=== PATIENT | female | born 1995 | race Caucasian/White ===

== ENCOUNTER → 2016-10-14 | Outpatient (CLI) | payer OTHER ==
[~2016-10-14] MED LIST: ANUS2.5C2 TOP; COLA100C PO; LEVO100T4 PO; LEVO88TA3 PO; MILKSUS5 PO; MOTR200T44 PO; PRENTAB40 PO; TYLE325T5 PO
[2016-10-14 05:50] LABS: FREE T4 0.97 NG/DL (0.76-1.46)
== END ==
LOC: M LAB 05:02
PROVIDERS: ATTEND Family Medicine
DX: E06.3 Autoimmune thyroiditis (principal)

== ENCOUNTER → 2016-11-03 | Outpatient (CLI) | payer OTHER | LOC: M LAB 20:36 | PROVIDERS: ATTEND Family Medicine | DX: A69.20 Lyme disease, unspecified (principal); E06.3 Autoimmune thyroiditis ==

== ENCOUNTER → 2016-12-09 | Outpatient (REF) | payer OTHER ==
[~2016-12-09] MED LIST changes: -COLA100C PO; +COLA100C3 PO
[2016-12-09 11:20] LABS: MEAN CORPUSCULAR HEMOGLOBIN 30.7 pg (27.0-33.0); MEAN CORPUSCULAR HGB CONC 33.1 g/dl (32.0-36.5); RED CELL DISTRIBUTION WIDTH 12.1 % (11.5-14.5); WHITE BLOOD COUNT 8.6 K/mm3 (4.0-10.0)
[2016-12-09 11:22] LABS: ALBUMIN 4.2 GM/DL (3.2-5.2); ALBUMIN/GLOBULIN RATIO 1.24 (1.00-1.93); ALKALINE PHOSPHATASE 109 U/L (45-117); ALT/SGPT 21 U/L (12-78); ANION GAP 7 MEQ/L (8-16); AST/SGOT 8 U/L (15-37); BILIRUBIN,TOTAL 0.3 MG/DL (0.2-1.0); BLOOD UREA NITROGEN 13 MG/DL (7-18); CALCIUM LEVEL 8.6 MG/DL (8.5-10.1); CARBON DIOXIDE LEVEL 30 MEQ/L (21-32); CHLORIDE LEVEL 104 MEQ/L (98-107); CREATININE FOR GFR 0.62 MG/DL (0.55-1.02); GLOMERULAR FILTRATION RATE > 60.0 (>60); GLUCOSE, FASTING 104 MG/DL (70-105); POTASSIUM SERUM 3.5 MEQ/L (3.5-5.1); SODIUM LEVEL 141 MEQ/L (136-145); TOTAL PROTEIN 7.6 GM/DL (6.4-8.2)
[2016-12-12 00:06] LABS: HSV TYPE I IgM AB <1:10 titer (<1:10); HSV TYPE II IgM ABY <1:10 titer (<1:10)
== END ==
LOC: M SFHCPLAZ 09:12
PROVIDERS: ATTEND Internal Medicine Infectious Disease
DX: G89.29 Other chronic pain (principal); Z86.19 Personal history of other infectious and parasitic diseases; L51.9 Erythema multiforme, unspecified

== ENCOUNTER → 2016-12-10 | Outpatient (CLI) | payer OTHER ==
--- NOTE | 2016-12-10 20:48 | REP ---
Clinical: Shortness of breath. Technique: PA and lateral views of the chest. Findings: Diffuse coarsened interstitial markings is compatible with chronic reactive airway disease. No acute focal consolidation, effusion, or pneumothorax. Skeletal structures are intact. Impression: Diffuse coarsened interstitial changes suggest chronic reactive airway disease. No acute consolidation, effusion, or pneumothorax. Signed by Claude Richardson MD 12/10/2016 05:50 P
== END ==
LOC: M RAD 13:44
PROVIDERS: ATTEND Internal Medicine Infectious Disease
DX: R06.02 Shortness of breath (principal)

== ENCOUNTER → 2017-02-03 | Outpatient (CLI) | payer OTHER | LOC: M CARPUL 12:40 | PROVIDERS: ATTEND Family Medicine | DX: R06.02 Shortness of breath (principal) ==

== ENCOUNTER → 2017-03-17 | Outpatient (REF) | payer OTHER ==
[~2017-03-17] MED LIST changes: -COLA100C3 PO; +COLA100C5 PO
== END ==
LOC: M LAB REF 16:56
PROVIDERS: ATTEND Advanced Practice Midwife
DX: Z11.3 Encounter for screening for infections with a predominantly sexual mode of transmission (principal)

== ENCOUNTER → 2017-03-18 | Outpatient (CLI) | payer OTHER ==
--- NOTE | 2017-03-19 08:11 | REP ---
Clinical: Dyspareunia and IUD placement . Technique: Transabdominal pelvic ultrasound with color Doppler evaluation of the ovaries. Findings: Bladder is unremarkable and measures approximately 9.0 x 7.38 x 6.3 cm . Normal anteverted uterus measures 8.6 x 2.5 x 4.9 cm . The endometrial complex is unremarkable and IUD is identified in central, satisfactory location. No discrete uterine or endometrial abnormalities are appreciated. Bilateral ovaries are normal in appearance and vascularity without evidence for torsion. Right ovary measures 3.5 x 3.0 x 1.6 cm ; R I = 0.45 . Left ovary measures 2.7 x 2.5 x 1.8 cm ; R I = 0.52 . No pelvic fluid or adnexal mass lesion. Impression: 1. Normal pelvic ultrasound. IUD in satisfactory position. Signed by Claude Richardson MD 03/19/2017 04:48 A
== END ==
LOC: M RAD 14:09
PROVIDERS: ATTEND Advanced Practice Midwife
DX: N94.12 Deep dyspareunia (principal)

== ENCOUNTER → 2017-03-18 | Outpatient (CLI) | payer OTHER ==
--- NOTE | 2017-03-19 08:11 | REP ---
Clinical: History of Sundeep's disease. Technique: Real time lindsay scale evaluation using linear high frequency transducer. Findings: The thyroid gland is diffusely heterogeneous but normal in size and without focal cystic or nodule/mass. Right lobe measures 4.6 x 1.4 x 0.94 cm. Left lobe measures 4.1 x 1.2 x 1.1 cm. Isthmus measures 4.2 mm in width. Impression: Essentially unremarkable thyroid gland. Signed by Claude Richardson MD 03/19/2017 04:46 A
== END ==
LOC: M RAD 14:12
PROVIDERS: ATTEND Internal Medicine
DX: R53.83 Other fatigue (principal); R06.3 Periodic breathing

== ENCOUNTER → 2017-05-18 | Outpatient (CLI) | payer OTHER ==
--- NOTE | 2017-05-18 20:20 | ECGEPIP ---
Stationary ECG Study [facility] Test Date: 2017-05-18 Pat Name: ARETHA SHEEHAN Department: Room: - Gender: F Chicken Handler: REGGIE : 1995 Requested By: Kylie Vela Order Number: [id number] Reading MD: Oren Nichols Measurements Intervals Rogers Rate: 70 P: 70 WA: 157 QRS: 53 QRSD: 81 T: 53 QT: 359 QTc: 388 Interpretive Statements SINUS RHYTHM NO CHANGE SINCE 11/25/11 Electronically Signed On 05-18-2017 20:20:35 EDT by Oren Nichols
--- NOTE | 2017-05-18 20:26 | ECHO ---
DATE OF PROCEDURE: 05/18/2017 REFERRING PHYSICIAN: Kylie Vela NP INDICATION: Palpitations. HEIGHT: 157 cm WEIGHT: 41 kg DIMENSIONS: IVS: 0.8 LV: 3.9 LVPW: 0.7 LA: 2.9 Aorta: 2.5 FINDINGS: The study is of good technical quality. Left ventricle is of normal size and systolic function with estimated left ventricular ejection fraction (LVEF) 60-65%. All four cardiac valves were well seen and appear normal. Right ventricle is normal size and systolic function. Both atria appear normal. No pericardial effusion is present. Inferior vena cava is normal size and appropriately collapses with respiration. Aortic root, aortic arch and abdominal aorta appear all normal. Doppler interrogation reveals no significant valvular disease, all four cardiac valves are functionally competent. Mitral inflow pattern and tissue Doppler imaging of mitral annulus reveal normal diastolic function (E prime septal and lateral velocities are 10 and 17 cm/s respectively). CONCLUSIONS: 1. Study is of good technical quality. 2. Normal LV size, systolic and diastolic function. 3. No significant valvular disease. 4. Normal central venous pressure. 5. Unable to estimate pulmonary artery pressure. 6. Normal echocardiogram. COMMENT: Subacute bacterial endocarditis (SBE) prophylaxis is not recommended. MTDD
== END ==
LOC: M CARPUL 10:16
PROVIDERS: ATTEND Nurse Practitioner Family
DX: R00.2 Palpitations (principal)

== ENCOUNTER → 2017-09-17 | Outpatient (REF) | payer OTHER ==
[2017-09-17 20:44] LABS: FREE T4 0.99 NG/DL (0.76-1.46); THYROID STIMULATING HORMONE 0.397 uIU/ML (0.358-3.740)
[2017-09-20 09:53] LABS: THYROID PEROXIDASE ANTIBODY 820.1 U/ML (<60.0)
[2017-09-21 10:16] LABS: TSH RECEPTOR ASSAY <0.50 IU/L (0.00-1.75)
== END ==
LOC: M LAB 19:33
DX: Z00.00 Encounter for general adult medical examination without abnormal findings (principal); E03.9 Hypothyroidism, unspecified

== ENCOUNTER → 2018-04-01 | Outpatient (CLI) | payer OTHER, SELFPAY ==
[2018-04-01 21:31] LABS: BASO % 0.3 % (0.0-1.0); EOS # 0.2 10^3/uL (0.0-0.50); EOS % 2.2 % (0.0-3.0); HEMATOCRIT 43.1 % (36.0-47.0); HEMOGLOBIN 14.1 g/dl (12.0-15.5); IMMATURE GRANULOCYTE % 0.5 % (0-3.0); LYMPH # 2.2 10^3/uL (1.5-6.5); LYMPH % 24.6 % (24.0-44.0); MEAN CORPUSCULAR HEMOGLOBIN 30.9 pg (27.0-33.0); MEAN CORPUSCULAR HGB CONC 32.7 g/dl (32.0-36.5); MEAN CORPUSCULAR VOLUME 94.5 fl (80.0-96.0); MONO # 0.3 10^3/uL (0.0-0.8); MONO % 3.4 % (0.0-5.0); NEUTROPHILS # 6.1 10^3/uL (1.8-7.7); PLATELET COUNT, AUTOMATED 221 10^3/uL (150-450); RED BLOOD COUNT 4.56 10^6/uL (4.00-5.40); RED CELL DISTRIBUTION WIDTH 11.8 % (11.5-14.5); WHITE BLOOD COUNT 8.8 10^3/uL (4.0-10.0)
[2018-04-01 21:51] LABS: ERYTHROCYTE SEDIMENTATION RATE 2 mm/hr (0-20)
[2018-04-01 21:56] LABS: ALBUMIN 4.4 GM/DL (3.2-5.2); ALBUMIN/GLOBULIN RATIO 1.13 (1.00-1.93); ALKALINE PHOSPHATASE 94 U/L (45-117); ALT/SGPT 27 U/L (12-78); ANION GAP 7 MEQ/L (8-16); AST/SGOT 9 U/L (7-37); BILIRUBIN,TOTAL 0.4 MG/DL (0.2-1.0); BLOOD UREA NITROGEN 12 MG/DL (7-18); CALCIUM LEVEL 9.2 MG/DL (8.5-10.1); CARBON DIOXIDE LEVEL 30 MEQ/L (21-32); CHLORIDE LEVEL 104 MEQ/L (98-107); CREATININE FOR GFR 0.79 MG/DL (0.55-1.30); GLOMERULAR FILTRATION RATE > 60.0 (>60); GLUCOSE, FASTING 88 MG/DL (70-100); POTASSIUM SERUM 4.4 MEQ/L (3.5-5.1); SODIUM LEVEL 141 MEQ/L (136-145); THYROID STIMULATING HORMONE 0.649 uIU/ML (0.358-3.740); TOTAL 25(OH) VITAMIN D 29.2 NG/ML (30.0-100.0); TOTAL PROTEIN 8.3 GM/DL (6.4-8.2)
== END ==
LOC: M LAB 20:43
DX: E06.3 Autoimmune thyroiditis (principal); R53.83 Other fatigue
CPT/HCPCS: 84443

== ENCOUNTER → 2018-04-06 | Outpatient (REF) | payer OTHER, SELFPAY | LOC: M LAB REF 17:02 | DX: R30.0 Dysuria (principal); Z12.4 Encounter for screening for malignant neoplasm of cervix | CPT/HCPCS: 87086 ==

== ENCOUNTER 2018-06-22 23:57 | Outpatient (CLI) | payer OTHER ==
[2018-06-23 01:43] LABS: BASO % 0.3 % (0.0-1.0); EOS # 0.2 10^3/uL (0.0-0.50); EOS % 1.8 % (0.0-3.0); HEMOGLOBIN 13.6 g/dl (12.0-15.5); IMMATURE GRANULOCYTE % 0.3 % (0-3.0); LYMPH # 2.4 10^3/uL (1.5-6.5); LYMPH % 27.1 % (24.0-44.0); MEAN CORPUSCULAR HEMOGLOBIN 31.1 pg (27.0-33.0); MEAN CORPUSCULAR HGB CONC 32.4 g/dl (32.0-36.5); MEAN CORPUSCULAR VOLUME 95.9 fl (80.0-96.0); MONO # 0.3 10^3/uL (0.0-0.8); MONO % 3.8 % (0.0-5.0); NEUTROPHILS # 5.8 10^3/uL (1.8-7.7); NEUTROPHILS % 66.7 % (36.0-66.0); PLATELET COUNT, AUTOMATED 242 10^3/uL (150-450); RED BLOOD COUNT 4.38 10^6/uL (4.00-5.40); RED CELL DISTRIBUTION WIDTH 12.4 % (11.5-14.5); WHITE BLOOD COUNT 8.8 10^3/uL (4.0-10.0)
[2018-06-23 01:52] LABS: APPEARANCE, URINE CLEAR (CLEAR); BACTERIA, URINE AUTO 1+ (NEGATIVE); BILIRUBIN, URINE AUTO NEGATIVE (NEGATIVE); BLOOD, URINE BLOOD NEGATIVE (NEGATIVE); COLOR, URINE YELLOW (YELLOW); GLUCOSE, URINE (UA) AUTO NEGATIVE (NEGATIVE); KETONE, URINE AUTO NEGATIVE (NEGATIVE); LEUKOCYTE ESTERASE, URINE AUTO NEGATIVE (NEGATIVE); MUCUS, URINE SMALL (NEGATIVE); NITRITE, URINE AUTO NEGATIVE (NEGATIVE); PROTEIN, URINE AUTO NEGATIVE (NEGATIVE); RBC, URINE AUTO 0 /HPF (0-3); SQUAMOUS EPITHELIAL CELL UR AU 3 /HPF (0-6); WBC, URINE AUTO 1 /HPF (0-3)
[2018-06-23 01:55] LABS: ALBUMIN/GLOBULIN RATIO 1.29 (1.00-1.93); ALKALINE PHOSPHATASE 83 U/L (45-117); ALT/SGPT 27 U/L (12-78); ANION GAP 6 MEQ/L (8-16); AST/SGOT 9 U/L (7-37); BILIRUBIN,TOTAL 0.3 MG/DL (0.2-1.0); BLOOD UREA NITROGEN 12 MG/DL (7-18); C REACTIVE PROTEIN QUANTITATIV < 0.30 MG/DL (0.00-0.30); CALCIUM LEVEL 8.6 MG/DL (8.5-10.1); CARBON DIOXIDE LEVEL 29 MEQ/L (21-32); CHLORIDE LEVEL 104 MEQ/L (98-107); CREATININE FOR GFR 0.67 MG/DL (0.55-1.30); GLOMERULAR FILTRATION RATE > 60.0 (>60); GLUCOSE, FASTING 105 MG/DL (70-100); SODIUM LEVEL 139 MEQ/L (136-145); TOTAL PROTEIN 7.1 GM/DL (6.4-8.2); URIC ACID 3.5 MG/DL (2.6-6.0)
[2018-06-23 02:05] LABS: ERYTHROCYTE SEDIMENTATION RATE 2 mm/hr (0-20)
[2018-06-23 02:21] LABS: COMPLEMENT C3 75 MG/DL (90-180)
[2018-06-23 02:25] LABS: MALB URINE SIEMENS 12.7 MG/L
[2018-06-23 03:06] LABS: MAU/CREAT RATIO 9.9 MCG/MG (0.0-30.0)
[2018-06-25 08:06] LABS: ANTI DOUBLE STRAND-DNA AB 1 IU/mL (0-9); BETA-2 GLYCOPROTEIN I ABY IGA <9 (0-25); BETA-2 GLYCOPROTEIN I ABY IGG <9 (0-20); BETA-2 GLYCOPROTEIN I ABY IGM <9 (0-32)
[2018-06-28 09:12] LABS: DRVV SCREEN 34.2 SEC
[2018-06-28 09:16] LABS: PTT LUPUS TYPE ANTICOAG SCREEN 0.8 (0-1.2)
== END 2018-06-23 ==
LOC: M LAB 23:57
DX: M32.11 Endocarditis in systemic lupus erythematosus (principal)
CPT/HCPCS: 84550

== ENCOUNTER → 2018-10-05 | Outpatient (CLI) | payer BC ==
[2018-10-05 19:33] LABS: FREE T4 0.97 NG/DL (0.76-1.46); THYROID STIMULATING HORMONE 0.817 uIU/ML (0.358-3.740)
== END ==
LOC: M SMT 15:10
PROVIDERS: ATTEND Physician Assistant
DX: E06.3 Autoimmune thyroiditis (principal)

== ENCOUNTER → 2018-12-21 | Outpatient (CLI) | payer BC, OTHER ==
[2018-12-21 13:19] LABS: BASO % 0.2 % (0.0-1.0); EOS # 0.1 10^3/uL (0.0-0.50); EOS % 1.3 % (0.0-3.0); HEMOGLOBIN 12.1 g/dl (12.0-15.5); LYMPH # 1.8 10^3/uL (1.5-6.5); LYMPH % 20.9 % (24.0-44.0); MEAN CORPUSCULAR HEMOGLOBIN 31.2 pg (27.0-33.0); MEAN CORPUSCULAR HGB CONC 33.6 g/dl (32.0-36.5); MEAN CORPUSCULAR VOLUME 92.8 fl (80.0-96.0); MONO # 0.4 10^3/uL (0.0-0.8); MONO % 4.6 % (0.0-5.0); NEUTROPHILS # 6.2 10^3/uL (1.8-7.7); NEUTROPHILS % 72.2 % (36.0-66.0); PLATELET COUNT, AUTOMATED 211 10^3/uL (150-450); RED BLOOD COUNT 3.88 10^6/uL (4.00-5.40); WHITE BLOOD COUNT 8.5 10^3/uL (4.0-10.0)
[2018-12-21 13:50] LABS: FREE T4 1.21 NG/DL (0.76-1.46); RUBELLA IgG QUALITATIVE IMMUNE (IMMUNE); THYROID STIMULATING HORMONE 0.466 uIU/ML (0.358-3.740)
[2018-12-21 14:16] LABS: HIV 1&2 SCREEN CENTAUR NEGATIVE (NEGATIVE)
[2018-12-21 15:01] LABS: CHLAMYDIA DNA AMPLIFICATION NEGATIVE (NEGATIVE); GC DNA AMPLIFICATION NEGATIVE (NEGATIVE)
== END ==
LOC: M SMT 10:00
PROVIDERS: ATTEND Specialist
DX: Z34.81 Encounter for supervision of other normal pregnancy, first trimester (principal); Z3A.09 9 weeks gestation of pregnancy

== ENCOUNTER → 2019-01-19 | Outpatient (CLI) | payer BC | LOC: M SMT 15:52 | PROVIDERS: ATTEND Specialist | DX: Z34.82 Encounter for supervision of other normal pregnancy, second trimester (principal) ==

== ENCOUNTER → 2019-02-21 | Outpatient (CLI) | payer BC ==
[2019-02-21 18:54] LABS: FREE T4 1.1 NG/DL (0.76-1.46); THYROID STIMULATING HORMONE 0.699 uIU/ML (0.358-3.740)
== END ==
LOC: M SMT 15:08
PROVIDERS: ATTEND Specialist
DX: E03.9 Hypothyroidism, unspecified (principal)

== ENCOUNTER → 2019-04-27 | Outpatient (CLI) | payer BC ==
[2019-04-27 13:41] LABS: BASO % 0.5 % (0.0-1.0); EOS # 0.1 10^3/uL (0.0-0.5); EOS % 1.3 % (0.0-3.0); HEMATOCRIT 36.2 % (36.0-47.0); HEMOGLOBIN 12.2 g/dl (12.0-15.5); LYMPH # 1.5 10^3/uL (1.5-5.0); LYMPH % 17.1 % (24.0-44.0); MEAN CORPUSCULAR HEMOGLOBIN 32.4 pg (27.0-33.0); MEAN CORPUSCULAR HGB CONC 33.7 g/dl (32.0-36.5); MEAN CORPUSCULAR VOLUME 96.3 fl (80.0-96.0); MONO # 0.3 10^3/uL (0.0-0.8); MONO % 3.8 % (0.0-5.0); NEUTROPHILS # 6.4 10^3/uL (1.5-8.5); NEUTROPHILS % 74.2 % (36.0-66.0); PLATELET COUNT, AUTOMATED 162 10^3/uL (150-450); RED BLOOD COUNT 3.76 10^6/uL (4.00-5.40); WHITE BLOOD COUNT 8.6 10^3/uL (4.0-10.0)
== END ==
LOC: M SMT 09:27
PROVIDERS: ATTEND Specialist
DX: O09.292 Supervision of pregnancy with other poor reproductive or obstetric history, second trimester (principal)

== ENCOUNTER → 2019-05-05 | Outpatient (CLI) | payer BC | LOC: M LAB 07:16 | PROVIDERS: ATTEND Specialist | DX: Z34.82 Encounter for supervision of other normal pregnancy, second trimester (principal) ==

== ENCOUNTER → 2019-06-21 | Outpatient (CLI) | payer BC | LOC: M SMT 14:28 | PROVIDERS: ATTEND Advanced Practice Midwife | DX: Z34.83 Encounter for supervision of other normal pregnancy, third trimester (principal); Z3A.00 Weeks of gestation of pregnancy not specified ==

== ENCOUNTER 2019-07-07 06:35 | Inpatient (IN) | payer BC ==
[~2019-07-07] VITALS: Ht 157.5 cm; Wt 52.8 kg
[2019-07-07] VITALS (19 sets, daily range): BP systolic 109–139; BP diastolic 58–89
[~2019-07-07 06:35] MED LIST changes: +LEVOTHYROXINE 75MCG TABLET (0.075MG) PO SCH
[2019-07-07] MEDS ORDERED: SYNT75TA PO (07:13)
[2019-07-07] MEDS ORDERED: PLAQ200T4 PO (07:13)
[2019-07-07] MEDS ORDERED: miSOPROStol 50 MCG 1/2 TAB (S0191) SL SCH (07:30)
--- NOTE | 2019-07-07 07:51 | HPEPDOC ---
Obstetrical History & Physical General Date of Admission Jul 07, 2019 at 06:35 History of Present Illness Chief Complaint: Induction of labor Information Provided By: Patient Age: 23 : 3 Term: 1 Pre-term: 1 Abortions: 0 Livin Care Care: Good Care Dating Final EDC: Jul 21, 2019 Final EDC by: LMP EGA at Admission: 38 Antepartum Course Height (inches): 62 Pre- weight (lbs.): 89 Admission Weight (lbs.): 117 Past Medical History Past Obstetrical History #1: Past Obstetrical History: Primgravida (2012) Type of Delivery: Spontaneous Vaginal Del. Sex of Infant: Male Complications: Yes (stillborn @ 29 wks, cord entanglement) Past Obstetrical History #2: Past Obstetrical History: Multigravida (2013) Type of Delivery: Spontaneous Vaginal Del. Sex of : Male (7#5) Complications: No (IOL @ 38 wks) [employer] History: No pertinent history Past Medical History Medical History lupus, hashimotos, Surgical History: Other (septoplasty) Family History Significant Family History: No pertinent family hx Social History Marital Status: Family situation: Spouse/partner home Psychosocial History: No pertinent psych hx * Smoker: former Smoker Alcohol: Denies Drugs: denies Imunizations Tdap status: declined Allergies Coded Allergies: DYE'S (COLOR'S NOT IODINATED) (Verified Allergy, Intermediate, PURPLE DYE - HIVES, 10/20/07) codeine (Verified Adverse Reaction, Mild, TACHYCARDIA, 07/07/19) Medications Scheduled Levothyroxine Sodium (Synthroid) 75 Mcg Tablet, 1 TAB PO DAILY Pnv No.95/Ferrous Fum/Folic AC ( Formula Tablet) 1 Tab Tab, 1 TAB PO DAILY Miscellaneous Medications Hydroxychloroquine Sulfate (Plaquenil) 200 Mg Tablet, 200 MG PO Physical Examination Physical Examination GENERAL: Alert and oriented times three. BREAST: . ABDOMEN: Gravid and non-tender to touch. FETUS: Is vertex (VTX) by sterile vaginal examination (SVE), fetus is vertex (VTX) by Billy. HEART RATE: Regular rate and rhythm. LUNGS: Clear to auscultation (CTA). EXTREMITIES: No edema. No clonus. Deep tendon reflexes (DTRs) + 2. Laboratory Data 24H LABS Laboratory Tests 2 07/07/19 06:44: Serology Scanned Report Hepatitis B Testing Pertinent Laboratoy Data Blood Type: O+ RBC Antibody Screen: Negative HIV: Negative Hepatitis B: Negative Hepatitis C: Negative Rapid Plasma Reagin: Nonreactive Rubella: Immune Chlamydia/Gonorrhea: Negative Group B Streptococcus: Negative Glucose Tolerance Test: 134 (unable to tolerate 3hr. Daily fingerstick levels WNL) Diag/Inter Therapy Panorama, low risk male Anatomy Ultrasound Ultrasound Date: Mar 08, 2019 Placenta Location: Anterior Normal Anatomy: Yes Placenta Previa: No Estimated Weight (grams): 448 Other Ultrasounds 12/21/18 dating 10w 06/21/19 vertex Steroid Therapy Steroid Therapy: No Vaginal Examination Dilation: 3 cm Effacement: 70% Station: -2 Cervical Consistency: Soft Cervical Position: Middle Presentation: Cephalic presentation Assessment Heart Rate (FHR): 145 Variability: Moderate Accelerations: Positive Decelerations: None Tocometer Contractions: Yes Frequency: irregular Duration: less than 60 seconds Strength: palpated as mild Assessment/Plan Assessment Meghan is a 23-year-old (G)3 para (P)1-1-0-1 at 38-0 weeks by 10-week ultrasound. Presents to Labor and Delivery (L&D) induction of labor per consult Dr Perez. History is significant for lupus and hashimotos. Obstetric history complicated by 29wk demise due to cord entanglement. . 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 Group B Streptococcus (GBS) negative. Labs and intravenous (IV) per unit protocol. Counseled on misoprostol, Pitocin and induction of labor (IOL). Lactated Ringers (LR): Bolus 500 mL, then saline lock. Plans epidural for labor coping Anticipate normal spontaneous delivery (). C-S as appropriate. Moriah Wolfe CNM Jul 07, 2019 07:51
[2019-07-07 07:52] LABS: HEMATOCRIT 37.6 % (36.0-47.0); HEMOGLOBIN 12.3 g/dl (12.0-15.5); MEAN CORPUSCULAR HEMOGLOBIN 31.7 pg (27.0-33.0); MEAN CORPUSCULAR HGB CONC 32.7 g/dl (32.0-36.5); MEAN CORPUSCULAR VOLUME 96.9 fl (80.0-96.0); PLATELET COUNT, AUTOMATED 138 10^3/uL (150-450); RED BLOOD COUNT 3.88 10^6/uL (4.00-5.40); WHITE BLOOD COUNT 9.9 10^3/uL (4.0-10.0)
[2019-07-07] MEDS ORDERED: OXYTOCIN DRIP 30 UNITS in IV 1 EA IV SCH (12:30)
[2019-07-07] MEDS: LR 1,000 ML IV SCH ×2 (12:56→16:59)
--- NOTE | 2019-07-07 16:22 | IPNPDOC ---
Text Note Date of Service The patient was seen on 07/07/19. NOTE Remains comfortable. Pitocin @ 8mu Cat I tracing UC Q 2-3 minutes x 60 seconds SVE 3+/70/-2 Rec pt obtain her epidural then AROM Pt agrees. VS,Fishbone, I+O VS, Fishbone, I+O Laboratory Tests 07/07/19 07:36 Vital Signs Date Time Temp Pulse Resp B/P (MAP) Pulse Ox O2 Delivery O2 Flow Rate FiO2 07/07/19 15:52 85 18 127/81 (96) 07/07/19 13:00 98.6 Moriah Wolfe CNM Jul 07, 2019 16:22
[2019-07-07] MEDS ORDERED: FENTANYL 2MCG/ML ROPIVACAINE 0.2% IN 0.9% NACL 100ML IVBAG As Ordered ONE (17:05)
--- NOTE | 2019-07-07 17:54 | IPNPDOC ---
Text Note Date of Service The patient was seen on 07/07/19. NOTE Comfortable with epidural Pitocin @ 8 mu Cat I tracing UC 2-3 minutes apart SVE unchanged, AROM large amount clear fluid VS,Fishbone, I+O VS, Fishbone, I+O Laboratory Tests 07/07/19 07:36 Vital Signs Date Time Temp Pulse Resp B/P (MAP) Pulse Ox O2 Delivery O2 Flow Rate FiO2 07/07/19 16:53 75 18 133/82 (99) 07/07/19 13:00 98.6 Moriah Wolfe CNM Jul 07, 2019 17:53
[2019-07-07] MEDS ORDERED: LACTATED RINGER'S 1000 ML IV PRN (18:30)
[2019-07-07] MEDS ORDERED: FENTANYL/ROPIVACAINE/NACL BAG 100 ML EPIDURAL SCH (18:30)
[2019-07-07] MEDS ORDERED: EPIDURAL COMMENT XX SCH (18:30)
[2019-07-07] MEDS ORDERED: EPIDURAL/PCA KEYS XX PRN (18:30)
[2019-07-07] MEDS ORDERED: ONDANSETRON 4MG/2ML VIAL (J2405) IV PRN (18:30)
[2019-07-07] MEDS ORDERED: NALOXONE INJ 0.4 MG/1 ML VIAL (J2310) IV PRN (18:30)
[2019-07-07] MEDS ORDERED: ePHEDrine SULFATE 25 MG/5 ML(5MG/ML) SYRINGE IV PRN (18:30)
[2019-07-07] MEDS ORDERED: diphenhydrAMINE INJ 50MG/ML VIAL (J1200) IV PRN (18:30)
[2019-07-07] MEDS ORDERED: REFRIGERATOR IV KEYS XX PRN (18:30)
[2019-07-07 19:07] LABS: CORD GAS ABE A -6.9; CORD GAS HCO3 A 19.4 MEQ/L; CORD GAS PCO2 A 41.7 mmHg; CORD GAS PH A 7.285 UNITS; CORD GAS SBC A 18.5 MEQ/L; CORD GAS TCO2 A 20.7 MEQ/L
[2019-07-07 19:08] LABS: CORD GAS ABE V -4.7; CORD GAS HCO3 V 20.1 MEQ/L; CORD GAS O2 SAT V 86.6 %; CORD GAS PCO2 V 36.8 mmHg; CORD GAS PH V 7.355 UNITS; CORD GAS PO2 V 42.4 mmHg; CORD GAS SBC V 20.4 MEQ/L; CORD GAS TCO2 V 21.2 MEQ/L
[2019-07-07] MEDS ORDERED: RHOGAM 300 MCG (1500 IU) INJ (J2790) IM SCH (19:15)
[2019-07-07] MEDS ORDERED: IBUPROFEN 600 MG TAB PO PRN (19:15)
[2019-07-07] MEDS ORDERED: ACETAMINOPHEN 500 MG TAB PO PRN (19:15)
[2019-07-07] MEDS ORDERED: DIBUCAINE 1% OINTMENT 30GM TOP PRN (19:15)
[2019-07-07] MEDS ORDERED: ACETAMINOPHEN TAB 650MG DOSE (2X325MG) PO PRN (19:15)
[2019-07-07] MEDS ORDERED: DOCUSATE SODIUM 100 MG CAP PO PRN (19:15)
[2019-07-07] MEDS ORDERED: ANUSOL HC CREAM 30GM TOP PRN (19:15)
[2019-07-07] MEDS ORDERED: MOM 30ML SUSPENSION UDC PO PRN (19:15)
[2019-07-07] MEDS ORDERED: METHYLERGONOVINE MALEATE 0.2 MG TAB PO PRN (19:15)
[2019-07-07] MEDS ORDERED: MEASLES,MUMPS,RUBELLA VACCINE INJ (MMR-II) (90707) SC SCH (19:15)
--- NOTE | 2019-07-07 19:18 | DNPDOC ---
[facility] Delivery Note Delivery Note DATE OF DELIVERY: 07/07/2019 PREDELIVERY DIAGNOSIS: 38-0/7 weeks' gestation and labor. POST DELIVERY DIAGNOSIS: Delivered. PROCEDURE: Spontaneous vaginal delivery. PROVIDER: Moriah Wolfe CNM ANESTHESIA: Epidural. ESTIMATED BLOOD LOSS: 300 mL. FINDINGS: 5 pound 12 ounce, 2600gm male , Score 8/10, tight nuchal cord times 1, compound presentation right posterior arm. DELIVERY SUMMARY: Patient is a 23-year-old 3 now para 2-1-0-2 who was admitted to labor and delivery for induction of labor per consult Dr Perez. She received misoprostol PO x 1 and IV pitocin. She utilized an epidural for labor coping. AROM moderate amount clear fluid 174. Fully dilated 183. Viable male delivered KYAW via somersault maneuver through tight nuchal cord with compound right posterior arm @ 1843. Spontaneous respirations, transitioned on maternal abdomen. Cord gases obtained and are pending. Cord doubly clamped and cut once pulsations ceased. Apgars 8/10. Placenta flannery, intact with 3v cord @ 1859. Fundus firmed with massage and IV pitocin bolus. EBL 300ml. Perineum, cervix and vagina intact. Sponge, sharp and instrument count correct. Moriah Wolfe CNM Jul 07, 2019 19:18
[2019-07-08] MEDS: LEVOTHYROXINE 75MCG TABLET (0.075MG) PO SCH (00:10)
[2019-07-08] MEDS: HYDROXYCHLOROQUINE 200 MG TAB PO SCH (00:11)
[2019-07-08] MEDS: IBUPROFEN 800 MG TAB PO PRN ×3 (00:16→18:11)
[2019-07-08 06:24] VITALS: BP 108/60
--- NOTE | 2019-07-08 07:13 | IPNPDOC ---
Text Note Date of Service The patient was seen on 07/08/19. NOTE PP #1 Feels well. Adequate pain management. Breast and bottle feeding VSS, afebrile, normotensive Breasts soft, nipples intact Fundus firm, NT, down 1FB Perineum intact Lochia rubra light without odor PPD #1 Routine care. Enc putting baby to breast prior to using bottle. Discussed alternated methods vs bottle/nipple feeding Anticipate D/C in am VS,Fishbone, I+O VS, Fishbone, I+O Laboratory Tests 07/07/19 07:36 Vital Signs Date Time Temp Pulse Resp B/P (MAP) Pulse Ox O2 Delivery O2 Flow Rate FiO2 07/08/19 06:24 98.5 86 16 108/60 (76) I&O- Last 24 Hours up to 6 AM 07/08/19 06:00 Intake Total 1030.9 ml Output Total 1600 ml Balance -569.1 ml Moriah Wolfe CNM Jul 08, 2019 07:13
[2019-07-08] MEDS: PRENATAL VITAMINS CHEWABLE TABLET PO SCH (08:43)
[2019-07-08] MEDS ORDERED: PRENATAL VITAMINS CHEWABLE TABLET PO SCH (09:00)
[2019-07-08 18:00] VITALS: BP 130/87
[2019-07-09] MEDS: LEVOTHYROXINE 75MCG TABLET (0.075MG) PO SCH (00:15)
[2019-07-09] MEDS: HYDROXYCHLOROQUINE 200 MG TAB PO SCH (00:15)
[2019-07-09] MEDS: IBUPROFEN 800 MG TAB PO PRN (03:13)
[2019-07-09 06:00] VITALS: BP 108/64
[2019-07-09] MEDS: PRENATAL VITAMINS CHEWABLE TABLET PO SCH (08:21)
[2019-07-09] MEDS ORDERED: IBUP80TA PO (12:57)
== END 2019-07-09 13:25 | disposition home or self-care (01) | DRG 560 ==
LOC: M LDI 06:35 → M OBS 21:47
PROVIDERS: ADMIT Advanced Practice Midwife; ATTEND Advanced Practice Midwife
PROC: 10E0XZZ Delivery of Products of Conception, External Approach (ICD-10-PCS; principal; 2019-07-07)
PROC: 3E0P7GC Introduction of Other Therapeutic Substance into Female Reproductive, Via Natural or Artificial Opening (ICD-10-PCS; 2019-07-07)
PROC: 10907ZC Drainage of Amniotic Fluid, Therapeutic from Products of Conception, Via Natural or Artificial Opening (ICD-10-PCS; 2019-07-07)
DX: O99.284 Endocrine, nutritional and metabolic diseases complicating childbirth (principal); E06.3 Autoimmune thyroiditis; O26.893 Other specified pregnancy related conditions, third trimester; M32.9 Systemic lupus erythematosus, unspecified; Z3A.38 38 weeks gestation of pregnancy; Z37.0 Single live birth; O69.1XX0 Labor and delivery complicated by cord around neck, with compression, not applicable or unspecified; O32.8XX0 Maternal care for other malpresentation of fetus, not applicable or unspecified

== ENCOUNTER → 2019-08-22 | Outpatient (CLI) | payer BC ==
[~2019-08-22] MED LIST changes: +IBUP80TA PO; -LEVOTHYROXINE 75MCG TABLET (0.075MG) PO SCH; +PLAQ200T4 PO; +SYNT75TA PO
[2019-08-22 13:50] LABS: FREE T4 1.03 NG/DL (0.76-1.46); THYROID STIMULATING HORMONE 1.02 uIU/ML (0.358-3.740)
== END ==
LOC: M LAB 12:04
PROVIDERS: ATTEND Family Medicine
DX: E06.3 Autoimmune thyroiditis (principal)

== ENCOUNTER → 2020-03-01 | Outpatient (CLI) | payer BC ==
[2020-03-01 22:15] LABS: FREE T4 0.94 NG/DL (0.76-1.46)
== END ==
LOC: M LAB 21:32
PROVIDERS: ATTEND Physician Assistant
DX: E06.3 Autoimmune thyroiditis (principal)

== ENCOUNTER → 2020-04-25 | Outpatient (CLI) | payer BC ==
[2020-04-25 14:40] LABS: FREE T4 1.13 NG/DL (0.76-1.46); THYROID STIMULATING HORMONE 1.9 uIU/ML (0.358-3.740)
== END ==
LOC: M LAB 11:17
PROVIDERS: ATTEND Physician Assistant
DX: E06.3 Autoimmune thyroiditis (principal)

== ENCOUNTER → 2020-07-05 | Outpatient (CLI) | payer BC ==
[2020-07-05 21:24] LABS: APPEARANCE, URINE CLEAR (CLEAR); BACTERIA, URINE AUTO 1+ (NEGATIVE); BILIRUBIN, URINE AUTO NEGATIVE (NEGATIVE); BLOOD, URINE BLOOD NEGATIVE (NEGATIVE); COLOR, URINE STRAW (YELLOW); GLUCOSE, URINE (UA) AUTO NEGATIVE (NEGATIVE); KETONE, URINE AUTO NEGATIVE (NEGATIVE); LEUKOCYTE ESTERASE, URINE AUTO NEGATIVE (NEGATIVE); NITRITE, URINE AUTO NEGATIVE (NEGATIVE); PROTEIN, URINE AUTO NEGATIVE (NEGATIVE); RBC, URINE AUTO 0 /HPF (0-3); SPECIFIC GRAVITY URINE AUTO 1.008 (1.002-1.035); SQUAMOUS EPITHELIAL CELL UR AU 1 /HPF (0-6); UROBILINOGEN, URINE AUTO 0.2 mg/dL (0.0-2.0); WBC, URINE AUTO 0 /HPF (0-3)
[2020-07-05 21:31] LABS: BASO % 0.3 % (0.0-1.0); EOS # 0.1 10^3/uL (0.0-0.5); EOS % 0.6 % (0.0-3.0); HEMATOCRIT 45.2 % (36.0-47.0); HEMOGLOBIN 14.5 g/dl (12.0-15.5); LYMPH # 1.7 10^3/uL (1.5-5.0); LYMPH % 18.7 % (24.0-44.0); MEAN CORPUSCULAR HEMOGLOBIN 30.1 pg (27.0-33.0); MEAN CORPUSCULAR HGB CONC 32.1 g/dl (32.0-36.5); MEAN CORPUSCULAR VOLUME 93.8 fl (80.0-96.0); MONO # 0.3 10^3/uL (0.0-0.8); MONO % 3.2 % (0.0-5.0); NEUTROPHILS # 7.1 10^3/uL (1.5-8.5); PLATELET COUNT, AUTOMATED 257 10^3/uL (150-450); RED BLOOD COUNT 4.82 10^6/uL (4.00-5.40); WHITE BLOOD COUNT 9.3 10^3/uL (4.0-10.0)
[2020-07-05 21:51] LABS: TOTAL PROTEIN,RANDOM URINE 11.5 MG/DL (0.0-12.0)
[2020-07-05 21:55] LABS: ALBUMIN 4.5 GM/DL (3.2-5.2); ALT/SGPT 21 U/L (12-78); BILIRUBIN,TOTAL 0.3 MG/DL (0.2-1.0); BLOOD UREA NITROGEN 11 MG/DL (7-18); CALCIUM LEVEL 9.6 MG/DL (8.5-10.1); CARBON DIOXIDE LEVEL 31 MEQ/L (21-32); CHLORIDE LEVEL 105 MEQ/L (98-107); COMPLEMENT C3 93 MG/DL (90-180); COMPLEMENT C4 19 MG/DL (10-40); GLOMERULAR FILTRATION RATE > 60.0 (>60); GLUCOSE, FASTING 102 MG/DL (70-100); POTASSIUM SERUM 4.1 MEQ/L (3.5-5.1); SODIUM LEVEL 138 MEQ/L (136-145); TOTAL PROTEIN 8.1 GM/DL (6.4-8.2); URIC ACID 3.8 MG/DL (2.6-6.0)
== END ==
LOC: M LAB 20:45
PROVIDERS: ATTEND Internal Medicine
DX: M32.11 Endocarditis in systemic lupus erythematosus (principal)

== ENCOUNTER → 2020-09-24 | Outpatient (REF) | payer BC ==
[2020-09-24 11:03] LABS: HEMATOCRIT 40.7 % (36.0-47.0); HEMOGLOBIN 13.6 g/dl (12.0-15.5); MEAN CORPUSCULAR HEMOGLOBIN 31.1 pg (27.0-33.0); MEAN CORPUSCULAR HGB CONC 33.4 g/dl (32.0-36.5); MEAN CORPUSCULAR VOLUME 92.9 fl (80.0-96.0); PLATELET COUNT, AUTOMATED 240 10^3/uL (150-450); RED BLOOD COUNT 4.38 10^6/uL (4.00-5.40); WHITE BLOOD COUNT 9.7 10^3/uL (4.0-10.0)
[2020-09-24 11:31] LABS: CREATININE,RANDOM URINE 34.4 MG/DL; TOTAL PROTEIN,RANDOM URINE 12.2 MG/DL (0.0-12.0)
[2020-09-24 12:33] LABS: ALT/SGPT 19 U/L (12-78); BILIRUBIN,TOTAL 0.2 MG/DL (0.2-1.0); CREATININE FOR GFR 0.46 MG/DL (0.55-1.30); GLOMERULAR FILTRATION RATE > 60.0 (>60); HEPATITIS C VIRUS ABY INDEX 0.1 INDEX (<0.8); HIV 1&2 SCREEN CENTAUR NEGATIVE (NEGATIVE); LDH LACTATE DEHYDROGENASE 124 U/L (84-246)
[2020-09-25 10:27] LABS: CHLAMYDIA DNA AMPLIFICATION NEGATIVE (NEGATIVE); GC DNA AMPLIFICATION NEGATIVE (NEGATIVE)
[2020-09-25 13:08] LABS: SSA SJOGRENS A 0.2 AI (0.0-0.9); SSB SJOGRENS B <0.2 AI (0.0-0.9)
== END ==
LOC: M PLALAB 08:07
PROVIDERS: ATTEND Obstetrics & Gynecology
DX: O30.031 Twin pregnancy, monochorionic/diamniotic, first trimester (principal)

== ENCOUNTER → 2020-10-09 | Outpatient (CLI) | payer BC | LOC: M WHC 11:06 | PROVIDERS: ATTEND Obstetrics & Gynecology | DX: Z53.9 Procedure and treatment not carried out, unspecified reason (principal); O30.031 Twin pregnancy, monochorionic/diamniotic, first trimester; Z3A.11 11 weeks gestation of pregnancy ==

== ENCOUNTER → 2020-10-09 | Outpatient (CLI) | payer BC | LOC: M PLALAB 11:32 | PROVIDERS: ATTEND Obstetrics & Gynecology | DX: O30.001 Twin pregnancy, unspecified number of placenta and unspecified number of amniotic sacs, first trimester (principal); Z3A.00 Weeks of gestation of pregnancy not specified ==

== ENCOUNTER → 2020-10-18 | Outpatient (CLI) | payer BC ==
[2020-10-18 17:27] LABS: APPEARANCE, URINE CLEAR (CLEAR); BACTERIA, URINE AUTO 1+ (NEGATIVE); BILIRUBIN, URINE AUTO NEGATIVE (NEGATIVE); BLOOD, URINE BLOOD NEGATIVE (NEGATIVE); COLOR, URINE STRAW (YELLOW); GLUCOSE, URINE (UA) AUTO NEGATIVE (NEGATIVE); KETONE, URINE AUTO NEGATIVE (NEGATIVE); LEUKOCYTE ESTERASE, URINE AUTO NEGATIVE (NEGATIVE); NITRITE, URINE AUTO NEGATIVE (NEGATIVE); PROTEIN, URINE AUTO NEGATIVE (NEGATIVE); RBC, URINE AUTO 1 /HPF (0-3); SPECIFIC GRAVITY URINE AUTO 1.004 (1.002-1.035); SQUAMOUS EPITHELIAL CELL UR AU 1 /HPF (0-6); UROBILINOGEN, URINE AUTO 0.2 mg/dL (0.0-2.0); WBC, URINE AUTO 3 /HPF (0-3)
[2020-10-18 17:31] LABS: BASO % 0.2 % (0.0-1.0); EOS # 0.1 10^3/uL (0.0-0.5); EOS % 1.4 % (0.0-3.0); HEMATOCRIT 38.2 % (36.0-47.0); HEMOGLOBIN 12.6 g/dl (12.0-15.5); LYMPH # 1.8 10^3/uL (1.5-5.0); LYMPH % 20.5 % (24.0-44.0); MEAN CORPUSCULAR HEMOGLOBIN 30.7 pg (27.0-33.0); MEAN CORPUSCULAR VOLUME 92.9 fl (80.0-96.0); MONO # 0.4 10^3/uL (0.0-0.8); MONO % 4.1 % (2.0-8.0); NEUTROPHILS # 6.6 10^3/uL (1.5-8.5); NEUTROPHILS % 73.1 % (36.0-66.0); PLATELET COUNT, AUTOMATED 217 10^3/uL (150-450); RED BLOOD COUNT 4.11 10^6/uL (4.00-5.40)
[2020-10-18 17:52] LABS: TOTAL PROTEIN,RANDOM URINE 9.1 MG/DL (0.0-12.0)
[2020-10-18 17:56] LABS: ALBUMIN 3.6 GM/DL (3.2-5.2); ALT/SGPT 16 U/L (12-78); BILIRUBIN,TOTAL 0.1 MG/DL (0.2-1.0); BLOOD UREA NITROGEN 10 MG/DL (7-18); CALCIUM LEVEL 9.2 MG/DL (8.5-10.1); CARBON DIOXIDE LEVEL 26 MEQ/L (21-32); CHLORIDE LEVEL 105 MEQ/L (98-107); COMPLEMENT C3 111 MG/DL (90-180); COMPLEMENT C4 29 MG/DL (10-40); CREATININE FOR GFR 0.48 MG/DL (0.55-1.30); GLOMERULAR FILTRATION RATE > 60.0 (>60); GLUCOSE, FASTING 87 MG/DL (70-100); POTASSIUM SERUM 3.8 MEQ/L (3.5-5.1); SODIUM LEVEL 137 MEQ/L (136-145); TOTAL PROTEIN 6.9 GM/DL (6.4-8.2)
== END ==
LOC: M LAB 16:38
PROVIDERS: ATTEND Internal Medicine
DX: M32.11 Endocarditis in systemic lupus erythematosus (principal)

== ENCOUNTER → 2020-10-24 | Outpatient (CLI) | payer BC ==
--- NOTE | 2020-10-24 13:35 | REP ---
INDICATION: TWIN GESTATION,DATING AND VIABILITY. COMPARISON: None. TECHNIQUE: Real-time sonographic evaluation of the gravid uterus performed. FINDINGS: There is a living intrauterine twin gestation, monochorionic, diamniotic. Estimated gestational age is13 weeks 6 days, EDC 04/25/2021. Today's measurements indicate appropriate concordant growth. Closed cervical length is measured at 4.1 cm. Fetus a: Presentation: Variable Placenta anterior, grade 1, without evidence of placenta previa. heart rate is recorded at 152 beats per minute. Amniotic fluid is subjectively normal. Biometry chart: BPD: 24 mm, 14 weeks 0 days, 54th percentile. HC: 84 mm, 13 weeks 5 days, 42nd percentile AC: 62 mm, 13 weeks 0 days, 24th percentile Femur length: 10 mm, 12 weeks 6 days, 19th percentile HC to AC ratio: 1.37, normal range 1.11-1.30. Estimated weight: 68g. Fetus b: Presentation: Variable Placenta anterior, grade 1, without evidence of placenta previa. heart rate is recorded at 156 beats per minute. Amniotic fluid is subjectively normal. Biometry chart: BPD: 25 mm, 314 weeks 2 days, 66th percentile. HC: 88 mm, 13 weeks 6 days, 50th percentile AC: 67 mm, 13 weeks 2 days, 35th percentile Femur length: 12 mm, 13 weeks 3 days, 37th percentile HC to AC ratio: 1.32, normal range 1.11-1.30. Estimated weight: 76g. Left ovarian complex cystic structure likely a corpus luteum measures 2.1 cm. IMPRESSION: Viable intrauterine twin gestation as above. Monochorionic, diamniotic. <Electronically signed by Bentley Pittman > 10/24/20 [id number]
== END ==
LOC: M WHC 11:34
PROVIDERS: ATTEND Obstetrics & Gynecology
DX: O30.031 Twin pregnancy, monochorionic/diamniotic, first trimester (principal); Z3A.13 13 weeks gestation of pregnancy

== ENCOUNTER → 2020-10-25 | Outpatient (REF) | payer BC | LOC: M LAB REF 15:26 | PROVIDERS: ATTEND Internal Medicine | DX: M32.11 Endocarditis in systemic lupus erythematosus (principal) ==

== ENCOUNTER → 2020-11-06 | Outpatient (REF) | payer BC | LOC: M PLALAB 10:24 | PROVIDERS: ATTEND Obstetrics & Gynecology | DX: O99.282 Endocrine, nutritional and metabolic diseases complicating pregnancy, second trimester (principal) ==

== ENCOUNTER → 2020-11-21 | Outpatient (CLI) | payer BC | LOC: M WHC 11:46 | PROVIDERS: ATTEND Obstetrics & Gynecology | DX: Z53.9 Procedure and treatment not carried out, unspecified reason (principal) ==

== ENCOUNTER → 2020-12-09 | Outpatient (CLI) | payer BC ==
--- NOTE | 2020-12-09 13:10 | REP ---
INDICATION: ANATOMY,TWIN GESTATION. COMPARISON: 10/24/2020. TECHNIQUE: Real-time sonographic evaluation of the gravid uterus performed. FINDINGS: There is a living intrauterine twin gestation, diamniotic monochorionic. Estimated gestational age is20 weeks 3 days, EDC 04/25/2021. Today's measurements indicate 28% discordant growth. Closed cervical length is measured at 3.2 cm. Fetus a: Presentation: Cephalic, maternal left Placenta anterior, grade 1, without evidence of placenta previa. heart rate is recorded at 145 beats per minute. Amniotic fluid is subjectively decreased, largest pocket of fluid 1.8 cm.. Biometry chart: BPD: 44 mm, 19 weeks 2 days, 19th percentile. HC: 160 mm, 18 weeks 6 days, less than 5th percentile AC: 135 mm, 18 weeks 6 days, 18th percentile Femur length: 27 mm, 18 weeks 1 days, less than 5th percentile HC to AC ratio: 1.19, normal range 1.06-1.24. Estimated weight: 247g. anatomy: Cranium: Grossly normal Lateral Ventricles/Choroid Plexus: Grossly normal Posterior Fossa/Cerebellum: Posteriorly the cerebellum appears partially unfused. Nose/lips/profile: There is a cleft lip. Four chamber heart: Not well seen due to position Right ventricular outflow tract: Not well seen due to position Left ventricular outflow tract: Not well seen due to position Left-sided stomach: Visualized, persistently under distended. Kidneys: Not well seen due to position. Bladder: Grossly normal Cord Insertion: Grossly normal 3 vessel cord: Grossly normal Spine: Not well seen due to position. There are scattered echogenic foci in the chest and abdomen which may represent calcifications. The bowel appears echogenic. Fetus b: Presentation: Variable, maternal right. Placenta anterior, grade 1, without evidence of placenta previa. heart rate is recorded at 156 beats per minute. Amniotic fluid is subjectively increased, largest pocket of fluid 5.0 cm.. Biometry chart: BPD: 46 mm, 20 weeks 0 days, 38th percentile. HC: 174 mm, 19 weeks 6 days, 35th percentile AC: 152 mm, 20 weeks 3 days, 50th percentile Femur length: 33 mm, 20 weeks 2 days, 46th percentile HC to AC ratio: 1.14, normal range 1.06-1.24. Estimated weight: 343g, 38th percentile. anatomy: Cranium: Grossly normal Lateral Ventricles/Choroid Plexus: Grossly normal Posterior Fossa/Cerebellum: Grossly normal Nose/lips/profile: Grossly normal Four chamber heart: Grossly normal Right ventricular outflow tract: Grossly normal Left ventricular outflow tract: Grossly normal Left-sided stomach: Grossly normal Kidneys: Grossly normal Bladder: Grossly normal Cord Insertion: Grossly normal 3 vessel cord: Grossly normal Spine: Grossly normal IMPRESSION: Viable intrauterine diamniotic monochorionic twin gestation as above. Growth is 28% discordant. Fetus a demonstrates suboptimal growth. There is relatively decreased amount of amniotic fluid surrounding fetus a and increased amniotic fluid surrounding fetus B. 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 For fetus a, the cerebellum appears partially unfused posteriorly which may indicate an anomaly along the Dandy-Walker continuum. There is a cleft lip. Stomach is persistently under distended. There are scattered echogenic foci in the chest and abdomen which may represent calcifications. The bowel appears echogenic. The heart structures, kidneys and spine are not well seen due to position. <Electronically signed by Bentley Pittman > 12/09/20 [id number]
== END ==
LOC: M WHC 10:02
PROVIDERS: ATTEND Obstetrics & Gynecology
DX: O30.032 Twin pregnancy, monochorionic/diamniotic, second trimester (principal); O35.8XX1 Maternal care for other (suspected) fetal abnormality and damage, fetus 1; Z3A.20 20 weeks gestation of pregnancy

== ENCOUNTER → 2021-01-24 | Outpatient (CLI) | payer BC ==
[2021-01-24 11:31] LABS: APPEARANCE, URINE HAZY (CLEAR); BACTERIA, URINE AUTO 2+ (NEGATIVE); BASO # 0.1 10^3/uL (0.0-0.2); BASO % 0.6 % (0.0-1.0); BILIRUBIN, URINE AUTO NEGATIVE (NEGATIVE); BLOOD, URINE BLOOD NEGATIVE (NEGATIVE); COLOR, URINE YELLOW (YELLOW); EOS # 0.1 10^3/uL (0.0-0.5); EOS % 1.1 % (0.0-3.0); GLUCOSE, URINE (UA) AUTO NEGATIVE (NEGATIVE); HEMATOCRIT 34.7 % (36.0-47.0); HEMOGLOBIN 11.1 g/dl (12.0-15.5); KETONE, URINE AUTO NEGATIVE (NEGATIVE); LEUKOCYTE ESTERASE, URINE AUTO TRACE (NEGATIVE); LYMPH # 1.6 10^3/uL (1.5-5.0); LYMPH % 19.1 % (24.0-44.0); MEAN CORPUSCULAR HEMOGLOBIN 31.4 pg (27.0-33.0); MEAN CORPUSCULAR VOLUME 98.3 fl (80.0-96.0); MONO # 0.4 10^3/uL (0.0-0.8); MONO % 4.4 % (2.0-8.0); MUCUS, URINE SMALL (NEGATIVE); NEUTROPHILS # 5.8 10^3/uL (1.5-8.5); NEUTROPHILS % 70.5 % (36.0-66.0); NITRITE, URINE AUTO NEGATIVE (NEGATIVE); PLATELET COUNT, AUTOMATED 152 10^3/uL (150-450); PROTEIN, URINE AUTO NEGATIVE (NEGATIVE); RBC, URINE AUTO 0 /HPF (0-3); RED BLOOD COUNT 3.53 10^6/uL (4.00-5.40); SPECIFIC GRAVITY URINE AUTO 1.008 (1.002-1.035); SQUAMOUS EPITHELIAL CELL UR AU 1 /HPF (0-6); UROBILINOGEN, URINE AUTO 0.2 mg/dL (0.0-2.0); WBC, URINE AUTO 2 /HPF (0-3); WHITE BLOOD COUNT 8.2 10^3/uL (4.0-10.0)
[2021-01-24 13:28] LABS: ALBUMIN 2.9 GM/DL (3.2-5.2); ALT/SGPT 11 U/L (12-78); BILIRUBIN,TOTAL 0.2 MG/DL (0.2-1.0); BLOOD UREA NITROGEN 6 MG/DL (7-18); C REACTIVE PROTEIN QUANTITATIV 0.46 MG/DL (0.00-0.30); CALCIUM LEVEL 8.7 MG/DL (8.5-10.1); CARBON DIOXIDE LEVEL 27 MEQ/L (21-32); CHLORIDE LEVEL 105 MEQ/L (98-107); COMPLEMENT C3 126 MG/DL (90-180); COMPLEMENT C4 30 MG/DL (10-40); CREATININE FOR GFR 0.39 MG/DL (0.55-1.30); GLOMERULAR FILTRATION RATE > 60.0 (>60); GLUCOSE, FASTING 95 MG/DL (70-100); POTASSIUM SERUM 3.7 MEQ/L (3.5-5.1); SODIUM LEVEL 139 MEQ/L (136-145); TOTAL PROTEIN 6.3 GM/DL (6.4-8.2)
[2021-01-24 14:30] LABS: CREATININE,RANDOM URINE 48.2 MG/DL; TOTAL PROTEIN,RANDOM URINE 12.2 MG/DL (0.0-12.0)
[2021-01-27 11:07] LABS: ANTI DS-DNA AB Negative (Negative)
== END ==
LOC: M PLALAB 07:47
PROVIDERS: ATTEND Internal Medicine
DX: M32.11 Endocarditis in systemic lupus erythematosus (principal)

== ENCOUNTER → 2021-05-28 | Outpatient (CLI) | payer BC ==
--- NOTE | 2021-05-28 14:13 | REP ---
INDICATION: IUD PLACEMENT. COMPARISON: 03/18/2017 TECHNIQUE: Transvesical and transvaginal imaging FINDINGS: The uterus measures 8 x 3.4 x 5.9 cm. The endometrial echo complex is somewhat distorted by a specular reflection which is consistent with an IUD the placement of which is within normal limits. The uterine parenchymal echo pattern is unchanged from the prior exam The right ovary measures 3.1 x 1.8 x 2.8 cm and is within normal limits with an RI 0.43 The left ovary measures 3.2 x 1.8 x 2.9 cm and is within normal limits with an RI 0.42. There is no free fluid in cul-de-sac. IMPRESSION: IUD within normal limits. <Electronically signed by Kale Torres > 05/28/21 [id number]
== END ==
LOC: M RAD 13:02
PROVIDERS: ATTEND Nurse Practitioner Family
DX: T83.32XA Displacement of intrauterine contraceptive device, initial encounter (principal)

== ENCOUNTER → 2021-11-17 | Outpatient (CLI) | payer BC ==
[2021-11-17 11:42] LABS: FREE T4 1.11 NG/DL (0.76-1.46); THYROID STIMULATING HORMONE 3.68 uIU/ML (0.358-3.740)
== END ==
LOC: M PLALAB 07:28
PROVIDERS: ATTEND Family Medicine
DX: E06.3 Autoimmune thyroiditis (principal)

== ENCOUNTER → 2021-12-22 | Outpatient (REF) | LOC: M LABSMTC 10:43 | PROVIDERS: ATTEND Family Medicine | DX: Z20.828 Contact with and (suspected) exposure to other viral communicable diseases (principal); Z11.59 Encounter for screening for other viral diseases ==

== ENCOUNTER 2022-03-28 18:52 | Emergency (ER) | payer BC ==
[~2022-03-28] VITALS: Ht 157.5 cm; Wt 43.2 kg
[2022-03-28] MEDS ORDERED: LEVO100T5 (19:00)
[2022-03-28] MEDS ORDERED: TRAZ-252 (19:00)
[2022-03-28 20:11] LABS: BASO % 0.2 % (0.0-1.0); EOS # 0.1 10^3/uL (0.0-0.5); EOS % 0.4 % (0.0-3.0); HEMATOCRIT 45.4 % (36.0-47.0); HEMOGLOBIN 14.6 g/dl (12.0-15.5); LYMPH # 1.7 10^3/uL (1.5-5.0); LYMPH % 12.9 % (24.0-44.0); MEAN CORPUSCULAR HEMOGLOBIN 29.9 pg (27.0-33.0); MEAN CORPUSCULAR HGB CONC 32.2 g/dl (32.0-36.5); MEAN CORPUSCULAR VOLUME 92.8 fl (80.0-96.0); MONO # 0.5 10^3/uL (0.0-0.8); MONO % 3.5 % (2.0-8.0); NEUTROPHILS # 10.8 10^3/uL (1.5-8.5); NEUTROPHILS % 82.7 % (36.0-66.0); PLATELET COUNT, AUTOMATED 265 10^3/uL (150-450); RED BLOOD COUNT 4.89 10^6/uL (4.00-5.40); WHITE BLOOD COUNT 13.1 10^3/uL (4.0-10.0)
[2022-03-28 20:32] VITALS: BP 132/95
[2022-03-28 20:35] LABS: ALBUMIN 4.6 GM/DL (3.2-5.2); BILIRUBIN,DIRECT 0.2 MG/DL (0.0-0.2); BILIRUBIN,TOTAL 0.5 MG/DL (0.2-1.0); TOTAL PROTEIN 8.3 GM/DL (6.4-8.2)
[2022-03-28] MEDS ORDERED: OXYCODONE/APAP 5MG/325MG(HOME DOSE PACK) PO ONE (22:40)
== END 2022-03-28 22:44 | disposition home or self-care (01) ==
LOC: M ED 18:52
DX: R19.00 Intra-abdominal and pelvic swelling, mass and lump, unspecified site (principal); R10.9 Unspecified abdominal pain; I10 Essential (primary) hypertension; M32.9 Systemic lupus erythematosus, unspecified; Z79.899 Other long term (current) drug therapy; Z79.890 Hormone replacement therapy

== ENCOUNTER → 2022-04-28 | Outpatient (REF) | payer BC ==
[~2022-04-28] MED LIST changes: +LEVO100T5; +TRAZ-252
[2022-04-28 18:59] LABS: FREE T4 1.29 NG/DL (0.76-1.46); THYROID STIMULATING HORMONE 0.045 uIU/ML (0.358-3.740)
[2022-04-28 19:37] LABS: TOTAL 25(OH) VITAMIN D 49.3 NG/ML (30.0-100.0)
== END ==
LOC: M LABDRWAD 17:18
PROVIDERS: ATTEND Family Medicine
DX: E06.3 Autoimmune thyroiditis (principal)

== ENCOUNTER → 2022-06-18 | Outpatient (REF) | payer BC ==
[2022-06-18 11:40] LABS: FREE T4 1.13 NG/DL (0.76-1.46); THYROID STIMULATING HORMONE 0.345 uIU/ML (0.358-3.740)
== END ==
LOC: M PLALAB 10:02
PROVIDERS: ATTEND Family Medicine
DX: E06.3 Autoimmune thyroiditis (principal)

== ENCOUNTER → 2022-07-06 | Outpatient (REF) | payer BC ==
[2022-07-06 13:56] LABS: BASO % 0.3 % (0.0-1.0); EOS # 0.1 10^3/uL (0.0-0.5); EOS % 0.8 % (0.0-3.0); HEMATOCRIT 43.4 % (36.0-47.0); HEMOGLOBIN 13.6 g/dl (12.0-15.5); LYMPH # 1.6 10^3/uL (1.5-5.0); LYMPH % 15.9 % (24.0-44.0); MEAN CORPUSCULAR HEMOGLOBIN 29.1 pg (27.0-33.0); MEAN CORPUSCULAR HGB CONC 31.3 g/dl (32.0-36.5); MEAN CORPUSCULAR VOLUME 92.9 fl (80.0-96.0); MONO # 0.4 10^3/uL (0.0-0.8); MONO % 3.7 % (2.0-8.0); NEUTROPHILS # 7.9 10^3/uL (1.5-8.5); NEUTROPHILS % 78.9 % (36.0-66.0); PLATELET COUNT, AUTOMATED 258 10^3/uL (150-450); RED BLOOD COUNT 4.67 10^6/uL (4.00-5.40)
[2022-07-06 15:47] LABS: ALBUMIN 4.4 G/DL (3.2-5.2); ALT/SGPT 13 U/L (7.0-40); BILIRUBIN,TOTAL 0.6 MG/DL (0.3-1.2); BLOOD UREA NITROGEN 12 MG/DL (9-23); CALCIUM LEVEL 9.2 MG/DL (8.5-10.1); CARBON DIOXIDE LEVEL 28 MMOL/L (20-31); CHLORIDE LEVEL 101 MMOL/L (98-107); FREE T4 1.74 NG/DL (0.89-1.76); GLOMERULAR FILTRATION RATE > 60.0 (>60); GLUCOSE, FASTING 101 MG/DL (60-100); IRON (FE) 167 UG/DL (50-170); PERCENT SATURATION 46.6 % (13.2-45.0); SODIUM LEVEL 139 MMOL/L (136-145); THYROID STIMULATING HORMONE 0.093 uIU/ML (0.55-4.78); TOTAL IRON BINDING CAPACITY 358 UG/DL (250-425); TOTAL PROTEIN 7.4 G/DL (5.7-8.2); VITAMIN B12 LEVEL 624 PG/ML (211-911)
[2022-07-06 16:08] LABS: FOLATE 23.3 NG/ML (>5.4)
== END ==
LOC: M PLALAB 13:05
PROVIDERS: ATTEND Nurse Practitioner Adult Health
DX: R55 Syncope and collapse (principal)

== ENCOUNTER → 2022-08-18 | Outpatient (REF) | payer BC ==
[2022-08-18 11:09] LABS: THYROID STIMULATING HORMONE 0.714 uIU/ML (0.55-4.78)
[2022-08-18 11:10] LABS: FREE T4 1.68 NG/DL (0.89-1.76)
== END ==
LOC: M PLALAB 10:09
PROVIDERS: ATTEND Nurse Practitioner Adult Health
DX: E06.3 Autoimmune thyroiditis (principal)

== ENCOUNTER 2022-10-24 08:37 | Emergency (ER) | payer BC ==
[~2022-10-24] VITALS: Ht 157.5 cm; Wt 37.8 kg
[2022-10-24] MEDS ORDERED: EFFE75CA2 PO (09:17)
[2022-10-24] MEDS ORDERED: NS 1,000 ML IV ONE (09:45)
[2022-10-24] MEDS ORDERED: METOCLOPRAMIDE INJ 10MG/2ML VIAL IV ONE (09:45)
[2022-10-24 09:56] LABS: BASO % 0.2 % (0.0-1.0); EOS % 0.2 % (0.0-3.0); HEMATOCRIT 43.7 % (36.0-47.0); HEMOGLOBIN 14.3 g/dl (12.0-15.5); LYMPH % 12.1 % (24.0-44.0); MEAN CORPUSCULAR HGB CONC 32.7 g/dl (32.0-36.5); MEAN CORPUSCULAR VOLUME 91.8 fl (80.0-96.0); MONO # 0.3 10^3/uL (0.0-0.8); MONO % 3.1 % (2.0-8.0); NEUTROPHILS # 6.9 10^3/uL (1.5-8.5); PLATELET COUNT, AUTOMATED 266 10^3/uL (150-450); RED BLOOD COUNT 4.76 10^6/uL (4.00-5.40); WHITE BLOOD COUNT 8.3 10^3/uL (4.0-10.0)
[2022-10-24 10:24] LABS: HCG, SERUM QUALITATIVE NEGATIVE (NEGATIVE)
[2022-10-24 10:31] LABS: ALBUMIN 4.4 G/DL (3.2-5.2); ALKALINE PHOSPHATASE 72 U/L (46-116); ALT/SGPT 33 U/L (7.0-40); AST/SGOT 84 U/L (<34); BILIRUBIN,DIRECT 0.2 MG/DL (<0.4); BILIRUBIN,TOTAL 0.8 MG/DL (0.3-1.2); LIPASE 37 U/L (12-53); TOTAL PROTEIN 7.7 G/DL (5.7-8.2)
[2022-10-24] MEDS ORDERED: REGL10TA6 PO (11:26)
[2022-10-24 12:15] VITALS: BP 138/72
== END 2022-10-24 12:17 | disposition home or self-care (01) ==
LOC: M ED 08:37
DX: E86.0 Dehydration (principal); R11.10 Vomiting, unspecified; M32.9 Systemic lupus erythematosus, unspecified; Z88.5 Allergy status to narcotic agent; Z79.890 Hormone replacement therapy; Z79.899 Other long term (current) drug therapy
CPT/HCPCS: 80047; 80076; 83690; 84703; 85025; 96361; 96374; 99284; J2765

== ENCOUNTER → 2022-10-27 | Outpatient (REF) | payer BC ==
[~2022-10-27] MED LIST changes: +EFFE75CA2 PO; +REGL10TA6 PO
[2022-10-27 11:18] LABS: FREE T4 1.53 NG/DL (0.89-1.76); THYROID STIMULATING HORMONE 1.64 uIU/ML (0.55-4.78)
== END ==
LOC: M LAB REF 09:49
PROVIDERS: ATTEND Nurse Practitioner Adult Health
DX: E06.3 Autoimmune thyroiditis (principal)

== ENCOUNTER → 2022-10-27 | Outpatient (REF) | payer BC ==
[2022-11-03 10:04] LABS: LDH LACTATE DEHYDROGENASE 134 U/L (120-246)
[2022-11-03 10:06] LABS: C REACTIVE PROTEIN QUANTITATIV < 0.40 MG/DL (<1.0)
== END ==
LOC: M LAB REF 09:45
PROVIDERS: ATTEND Physician Assistant
DX: M32.9 Systemic lupus erythematosus, unspecified (principal); R53.83 Other fatigue; D72.89 Other specified disorders of white blood cells

== ENCOUNTER → 2022-10-30 | Outpatient (REF) | payer BC ==
[2022-10-30 17:56] LABS: BASO % 0.5 % (0.0-1.0); EOS # 0.1 10^3/uL (0.0-0.5); EOS % 0.8 % (0.0-3.0); HEMATOCRIT 40.4 % (36.0-47.0); HEMOGLOBIN 12.8 g/dl (12.0-15.5); LYMPH # 1.9 10^3/uL (1.5-5.0); LYMPH % 21.8 % (24.0-44.0); MEAN CORPUSCULAR HGB CONC 31.7 g/dl (32.0-36.5); MEAN CORPUSCULAR VOLUME 94.8 fl (80.0-96.0); MONO # 0.4 10^3/uL (0.0-0.8); MONO % 4.6 % (2.0-8.0); NEUTROPHILS # 6.2 10^3/uL (1.5-8.5); NEUTROPHILS % 71.9 % (36.0-66.0); PLATELET COUNT, AUTOMATED 281 10^3/uL (150-450); RED BLOOD COUNT 4.26 10^6/uL (4.00-5.40); WHITE BLOOD COUNT 8.6 10^3/uL (4.0-10.0)
[2022-10-30 18:24] LABS: C REACTIVE PROTEIN QUANTITATIV < 0.40 MG/DL (<1.0)
[2022-10-30 18:26] LABS: ERYTHROCYTE SEDIMENTATION RATE 4 mm/hr (0-20); LDH LACTATE DEHYDROGENASE 151 U/L (120-246)
== END ==
LOC: M PLALAB 16:48
PROVIDERS: ATTEND Physician Assistant
DX: D72.89 Other specified disorders of white blood cells (principal); M32.9 Systemic lupus erythematosus, unspecified; R53.83 Other fatigue

== ENCOUNTER → 2022-11-02 | Outpatient (REF) | payer BC ==
[2022-11-02 19:39] LABS: BASO % 0.5 % (0.0-1.0); EOS % 0.5 % (0.0-3.0); HEMATOCRIT 40.5 % (36.0-47.0); HEMOGLOBIN 12.5 g/dl (12.0-15.5); LYMPH # 1.7 10^3/uL (1.5-5.0); LYMPH % 23.2 % (24.0-44.0); MEAN CORPUSCULAR HEMOGLOBIN 29.5 pg (27.0-33.0); MEAN CORPUSCULAR HGB CONC 30.9 g/dl (32.0-36.5); MEAN CORPUSCULAR VOLUME 95.5 fl (80.0-96.0); MONO # 0.3 10^3/uL (0.0-0.8); MONO % 4.1 % (2.0-8.0); NEUTROPHILS # 5.4 10^3/uL (1.5-8.5); NEUTROPHILS % 71.4 % (36.0-66.0); PLATELET COUNT, AUTOMATED 316 10^3/uL (150-450); RED BLOOD COUNT 4.24 10^6/uL (4.00-5.40); WHITE BLOOD COUNT 7.5 10^3/uL (4.0-10.0)
[2022-11-02 19:51] LABS: ERYTHROCYTE SEDIMENTATION RATE 6 mm/hr (0-20)
== END ==
LOC: M LAB REF 17:48
PROVIDERS: ATTEND Physician Assistant
DX: D72.89 Other specified disorders of white blood cells (principal); R53.83 Other fatigue; M32.9 Systemic lupus erythematosus, unspecified

== ENCOUNTER → 2022-11-24 | Outpatient (REF) | payer BC ==
[~2022-11-24] MED LIST changes: +LEVO75TA4 PO
[2022-11-24 11:31] LABS: FOLLICLE STIMULATING HORMONE 5.7 mIU/ML; LUTEINIZING HORMONE 8.6 mIU/ML
== END ==
LOC: M LABDRAWP 10:08
PROVIDERS: ATTEND Nurse Practitioner Adult Health
DX: R63.4 Abnormal weight loss (principal); E06.3 Autoimmune thyroiditis; M32.9 Systemic lupus erythematosus, unspecified

== ENCOUNTER → 2023-04-21 | Outpatient (REF) | payer BC ==
[2023-04-21 13:45] LABS: BASO # 0.1 10^3/uL (0.0-0.2); BASO % 0.6 % (0.0-1.0); EOS # 0.1 10^3/uL (0.0-0.5); EOS % 1.2 % (0.0-3.0); HEMATOCRIT 44.3 % (36.0-47.0); HEMOGLOBIN 14.3 g/dl (12.0-15.5); LYMPH # 1.8 10^3/uL (1.5-5.0); LYMPH % 23.4 % (24.0-44.0); MEAN CORPUSCULAR HEMOGLOBIN 31.2 pg (27.0-33.0); MEAN CORPUSCULAR HGB CONC 32.3 g/dl (32.0-36.5); MEAN CORPUSCULAR VOLUME 96.5 fl (80.0-96.0); MONO # 0.4 10^3/uL (0.0-0.8); MONO % 4.6 % (2.0-8.0); NEUTROPHILS # 5.4 10^3/uL (1.5-8.5); NEUTROPHILS % 69.4 % (36.0-66.0); PLATELET COUNT, AUTOMATED 244 10^3/uL (150-450); RED BLOOD COUNT 4.59 10^6/uL (4.00-5.40); WHITE BLOOD COUNT 7.8 10^3/uL (4.0-10.0)
[2023-04-21 13:51] LABS: ALBUMIN 4.2 G/DL (3.2-5.2); ALKALINE PHOSPHATASE 78 U/L (46-116); ALT/SGPT 23 U/L (7.0-40); AST/SGOT 9 U/L (<34); BILIRUBIN,TOTAL 0.4 MG/DL (0.3-1.2); BLOOD UREA NITROGEN 14 MG/DL (9-23); CALCIUM LEVEL 9.7 MG/DL (8.5-10.1); CARBON DIOXIDE LEVEL 30 MMOL/L (20-31); CHLORIDE LEVEL 102 MMOL/L (98-107); CHOLESTEROL LEVEL 156 MG/DL (<200); CHOLESTEROL RISK RATIO 1.91 (<5); CREATININE FOR GFR 0.59 MG/DL (0.55-1.30); FREE T4 1.32 NG/DL (0.89-1.76); GLOMERULAR FILTRATION RATE > 60.0 (>60); GLUCOSE, FASTING 89 MG/DL (60-100); HDL CHOLESTEROL 81.5 MG/DL (>40); LDL CHOLESTEROL 57.3 MG/DL (<100); NON-HDL-C 74.5 MG/DL; POTASSIUM SERUM 4.3 MMOL/L (3.5-5.1); SODIUM LEVEL 139 MMOL/L (136-145); THYROID STIMULATING HORMONE 1.115 uIU/ML (0.55-4.78); TOTAL 25(OH) VITAMIN D 38.1 NG/ML (20.0-100.0); TOTAL PROTEIN 7.5 G/DL (5.7-8.2); TRIGLYCERIDES LEVEL 86 MG/DL (<150)
== END ==
LOC: M PLALAB 13:07
PROVIDERS: ATTEND Family Medicine
DX: E06.3 Autoimmune thyroiditis (principal); M32.9 Systemic lupus erythematosus, unspecified; Z13.220 Encounter for screening for lipoid disorders; Z13.29 Encounter for screening for other suspected endocrine disorder

== ENCOUNTER → 2023-06-02 | Outpatient (REF) | payer BC ==
[2023-06-02 10:20] LABS: ALKALINE PHOSPHATASE 72 U/L (46-116); ALT/SGPT 21 U/L (7.0-40); AST/SGOT 13 U/L (<34); BILIRUBIN,TOTAL 0.7 MG/DL (0.3-1.2); BLOOD UREA NITROGEN 15 MG/DL (9-23); CARBON DIOXIDE LEVEL 30 MMOL/L (20-31); CHLORIDE LEVEL 100 MMOL/L (98-107); GLOMERULAR FILTRATION RATE > 60.0 (>60); GLUCOSE, FASTING 130 MG/DL (60-100); POTASSIUM SERUM 3.8 MMOL/L (3.5-5.1); SODIUM LEVEL 137 MMOL/L (136-145); TOTAL PROTEIN 7.3 G/DL (5.7-8.2)
[2023-06-02 10:31] LABS: PROLACTIN 5.82 NG/ML
[2023-06-02 10:33] LABS: THYROID STIMULATING HORMONE 1.209 uIU/ML (0.55-4.78)
[2023-06-02 10:34] LABS: FREE T4 1.25 NG/DL (0.89-1.76)
[2023-06-02 10:48] LABS: HEMOGLOBIN A1c 4.9 % (4.0-6.0)
[2023-06-05 03:07] LABS: 17 HYDROXY PROGESTERONE 137 ng/dL (.); TESTOSTERONE FREE (DIRECT) 2.5 pg/mL (0.0-4.2)
== END ==
LOC: M PLALAB 09:35
PROVIDERS: ATTEND Nurse Practitioner Family
DX: R63.4 Abnormal weight loss (principal)

== ENCOUNTER → 2023-07-06 | Outpatient (REF) | payer BC ==
[2023-07-06 11:37] LABS: URINE PREG TEST NEGATIVE (NEGATIVE)
[2023-07-06 11:45] LABS: BASO % 0.5 % (0.0-1.0); EOS # 0.1 10^3/uL (0.0-0.5); EOS % 1.5 % (0.0-3.0); HEMATOCRIT 40.3 % (36.0-47.0); LYMPH # 1.9 10^3/uL (1.5-5.0); LYMPH % 29.5 % (24.0-44.0); MEAN CORPUSCULAR HEMOGLOBIN 31.8 pg (27.0-33.0); MEAN CORPUSCULAR HGB CONC 32.3 g/dl (32.0-36.5); MEAN CORPUSCULAR VOLUME 98.5 fl (80.0-96.0); MONO # 0.4 10^3/uL (0.0-0.8); MONO % 5.6 % (2.0-8.0); NEUTROPHILS # 4.1 10^3/uL (1.5-8.5); NEUTROPHILS % 62.3 % (36.0-66.0); PLATELET COUNT, AUTOMATED 238 10^3/uL (150-450); RED BLOOD COUNT 4.09 10^6/uL (4.00-5.40); WHITE BLOOD COUNT 6.6 10^3/uL (4.0-10.0)
[2023-07-06 11:53] LABS: APPEARANCE, URINE HAZY (CLEAR); BACTERIA, URINE AUTO NEGATIVE (NEGATIVE); BILIRUBIN, URINE AUTO NEGATIVE (NEGATIVE); BLOOD, URINE BLOOD NEGATIVE (NEGATIVE); COLOR, URINE YELLOW (YELLOW); GLUCOSE, URINE (UA) AUTO NEGATIVE (NEGATIVE); KETONE, URINE AUTO NEGATIVE (NEGATIVE); LEUKOCYTE ESTERASE, URINE AUTO TRACE (NEGATIVE); MUCUS, URINE SMALL (NEGATIVE); NITRITE, URINE AUTO NEGATIVE (NEGATIVE); PROTEIN, URINE AUTO NEGATIVE (NEGATIVE); RBC, URINE AUTO 1 /HPF (0-3); SPECIFIC GRAVITY URINE AUTO 1.018 (1.002-1.035); SQUAMOUS EPITHELIAL CELL UR AU 8 /HPF (0-6); UROBILINOGEN, URINE AUTO 0.2 mg/dL (0.0-2.0); WBC, URINE AUTO 1 /HPF (0-3)
[2023-07-06 11:57] LABS: ERYTHROCYTE SEDIMENTATION RATE 9 mm/hr (0-20)
[2023-07-06 11:58] LABS: TOTAL PROTEIN,RANDOM URINE 32.2 MG/DL (0.0-14.0)
[2023-07-06 12:04] LABS: C REACTIVE PROTEIN QUANTITATIV < 0.40 MG/DL (<1.0)
[2023-07-06 12:05] LABS: ALBUMIN 3.6 G/DL (3.2-5.2); ALKALINE PHOSPHATASE 65 U/L (46-116); ALT/SGPT 21 U/L (7.0-40); AST/SGOT 10 U/L (<34); BILIRUBIN,TOTAL 0.4 MG/DL (0.3-1.2); BLOOD UREA NITROGEN 17 MG/DL (9-23); CALCIUM LEVEL 8.3 MG/DL (8.5-10.1); CARBON DIOXIDE LEVEL 27 MMOL/L (20-31); CHLORIDE LEVEL 103 MMOL/L (98-107); COMPLEMENT C3 89.2 MG/DL (82.0-160.0); CREATININE FOR GFR 0.58 MG/DL (0.55-1.30); GLOMERULAR FILTRATION RATE > 60.0 (>60); GLUCOSE, FASTING 82 MG/DL (60-100); POTASSIUM SERUM 3.6 MMOL/L (3.5-5.1); SODIUM LEVEL 138 MMOL/L (136-145); TOTAL PROTEIN 6.7 G/DL (5.7-8.2)
== END ==
LOC: M LABDRWAD 09:52
PROVIDERS: ATTEND Internal Medicine
DX: M32.9 Systemic lupus erythematosus, unspecified (principal)

== ENCOUNTER → 2023-08-02 | Outpatient (REF) | payer BC | LOC: M LAB REF 15:26 | PROVIDERS: ATTEND Internal Medicine | DX: M32.9 Systemic lupus erythematosus, unspecified (principal) ==

== ENCOUNTER → 2023-10-25 | Outpatient (REF) | payer BC, OTHER | LOC: M SFHCWAGY 07:55 | PROVIDERS: ATTEND Nurse Practitioner Family | DX: Z12.4 Encounter for screening for malignant neoplasm of cervix (principal) ==

== ENCOUNTER → 2023-11-11 | Outpatient (REF) | payer OTHER | LOC: M PLALAB 16:30 | PROVIDERS: ATTEND Advanced Practice Midwife | DX: R87.612 Low grade squamous intraepithelial lesion on cytologic smear of cervix (LGSIL) (principal); R87.810 Cervical high risk human papillomavirus (HPV) DNA test positive ==

== ENCOUNTER → 2024-01-11 | Outpatient (CLI) | payer BC, OTHER ==
[2024-01-11 14:01] LABS: THYROID STIMULATING HORMONE 0.523 uIU/ML (0.55-4.78)
[2024-01-11 14:03] LABS: FREE T4 1.3 NG/DL (0.89-1.76)
== END ==
LOC: M PLALAB 08:58
PROVIDERS: ATTEND Nurse Practitioner Adult Health
DX: E06.3 Autoimmune thyroiditis (principal)

== ENCOUNTER → 2024-02-23 | Outpatient (REF) | payer BC, OTHER ==
[2024-02-23 13:54] LABS: FREE T4 1.33 NG/DL (0.89-1.76); THYROID STIMULATING HORMONE 0.835 uIU/ML (0.55-4.78)
== END ==
LOC: M LABDRWAD 12:50
PROVIDERS: ATTEND Nurse Practitioner Adult Health
DX: E06.3 Autoimmune thyroiditis (principal)

== ENCOUNTER → 2024-10-24 | Outpatient (CLI) | payer OTHER ==
[2024-10-24 12:08] LABS: FREE T4 1.28 NG/DL (0.89-1.76); THYROID STIMULATING HORMONE 1.397 uIU/ML (0.55-4.78)
[2024-10-24 12:09] LABS: CORTISOL AM 17.8 UG/DL (4.3-22.4)
== END ==
LOC: M PLALAB 07:57
PROVIDERS: ATTEND Family Medicine
DX: R53.83 Other fatigue (principal)

== ENCOUNTER → 2025-04-05 | Outpatient (REF) | payer OTHER ==
[~2025-04-05] MED LIST changes: +MAGN400O74 PO; -MILKSUS5 PO
== END ==
LOC: M SFHCWAGY 17:24
PROVIDERS: ATTEND Nurse Practitioner Family
DX: R87.612 Low grade squamous intraepithelial lesion on cytologic smear of cervix (LGSIL) (principal); R87.810 Cervical high risk human papillomavirus (HPV) DNA test positive; Z12.4 Encounter for screening for malignant neoplasm of cervix

== ENCOUNTER → 2025-05-11 | Outpatient (CLI) | payer OTHER | LOC: M WHC 12:46 | PROVIDERS: ATTEND Nurse Practitioner Family | DX: N80.9 Endometriosis, unspecified (principal); N94.6 Dysmenorrhea, unspecified; N83.202 Unspecified ovarian cyst, left side ==

== ENCOUNTER → 2025-06-01 | Outpatient (REF) | payer OTHER ==
[~2025-06-01] MED LIST changes: -TRAZ-252; +TRAZ-252 PO
[2025-06-01 14:29] LABS: BASO # 0.0 10^3/uL (0.0-0.2); BASO % 0.5 % (0.0-1.0); EOS # 0.1 10^3/uL (0.0-0.5); EOS % 1.2 % (0.0-3.0); LYMPH # 1.5 10^3/uL (1.5-5.0); LYMPH % 22.9 % (24.0-44.0); MONO # 0.5 10^3/uL (0.0-0.8); MONO % 7.2 % (2.0-8.0); NEUTROPHILS # 4.4 10^3/uL (1.5-8.5); NEUTROPHILS % 67.7 % (36.0-66.0); PLATELET COUNT, AUTOMATED 248 10^3/uL (150-450)
[2025-06-01 14:59] LABS: IRON (FE) 94.0 UG/DL (50-170); PERCENT SATURATION 32.1 % (13.2-45.0)
[2025-06-01 15:00] LABS: FREE T4 1.3 NG/DL (0.89-1.76)
[2025-06-01 15:01] LABS: TOTAL 25(OH) VITAMIN D 56.9 NG/ML (20.0-100.0)
[2025-06-01 15:02] LABS: VITAMIN B12 LEVEL 918.0 PG/ML (211-911)
== END ==
LOC: M LAB REF 13:22
PROVIDERS: ATTEND Nurse Practitioner Adult Health
DX: E06.3 Autoimmune thyroiditis (principal); R53.83 Other fatigue

== ENCOUNTER 2025-06-22 09:25 | Day surgery (SDC) | payer OTHER ==
[~2025-06-22] VITALS: Ht 157.5 cm; Wt 42.0 kg
[2025-06-22] MEDS ORDERED: LR 1,000 ML IV SCH (09:40)
[2025-06-22] MEDS: LIDOCAINE 1% SDV 30 ML VIAL As Ordered ONE (10:07)
[2025-06-22] MEDS ORDERED: LIDOCAINE 2% 100 MG/5 ML SDV (FOR ANES.) As Ordered ONE (10:07)
[2025-06-22] MEDS ORDERED: ACETAMINOPHEN 1000MG/100ML IV BAG As Ordered ONE (10:07)
[2025-06-22] MEDS ORDERED: dexAMETHasone 4 MG/ML 1 ML VIAL As Ordered ONE (10:07)
[2025-06-22] MEDS ORDERED: MIDAZOLAM INJ 2 MG/2 ML VIAL As Ordered ONE (10:07)
[2025-06-22] MEDS ORDERED: ONDANSETRON 4MG/2ML VIAL As Ordered ONE (10:07)
[2025-06-22] MEDS ORDERED: KETOROLAC 30 MG/ML 1 ML VIAL As Ordered ONE (10:07)
[2025-06-22 10:31] LABS: CALCIUM LEVEL 9.5 MG/DL (8.5-10.1); CARBON DIOXIDE LEVEL 30 MMOL/L (20-31); CHLORIDE LEVEL 105 MMOL/L (98-107); CREATININE FOR GFR 0.73 MG/DL (0.55-1.30); GLOMERULAR FILTRATION RATE > 90.0 (>60); POTASSIUM SERUM 4.1 MMOL/L (3.5-5.1); SODIUM LEVEL 139 MMOL/L (136-145)
[2025-06-22 10:39] LABS: HCG, SERUM QUALITATIVE NEGATIVE (NEGATIVE)
[2025-06-22] MEDS: SILVER NITRATE APPLICATOR (1 = QTY 10) As Ordered ONE (11:20)
[2025-06-22 12:50] VITALS: BP 106/66; TEMP 97.8; O2SAT 99
== END 2025-06-22 12:40 | disposition home or self-care (01) ==
LOC: M SDC 09:25
PROVIDERS: ATTEND Obstetrics & Gynecology
DX: N84.0 Polyp of corpus uteri (principal); N93.9 Abnormal uterine and vaginal bleeding, unspecified; E06.3 Autoimmune thyroiditis; M32.9 Systemic lupus erythematosus, unspecified; Z79.890 Hormone replacement therapy; Z79.899 Other long term (current) drug therapy; Z88.5 Allergy status to narcotic agent
CPT/HCPCS: 36415; 58558; 80048; 81025; 84703; 85014; 85018; 86850; 86900; 86901; 88305; J0131; J1100; J1885; J2250; J2405; J3010

== ENCOUNTER → 2025-08-08 | Outpatient (REF) | payer OTHER ==
[2025-08-08 11:12] LABS: FREE T4 1.04 NG/DL (0.89-1.76)
== END ==
LOC: M PLALAB 10:03
PROVIDERS: ATTEND Nurse Practitioner Adult Health
DX: E06.3 Autoimmune thyroiditis (principal)